=== PATIENT | male | born 1970 | race Caucasian/White ===

== ENCOUNTER 2019-12-04 21:18 | Emergency (ER) | payer SELFPAY ==
[2019-12-04 21:40] VITALS: BP 141/88; PULSE 85; RESP 15; TEMP 37.2; O2SAT 96; BMI 25.1
--- NOTE | 2019-12-04 22:33 | XR_ITS ---
WS: [id number] LEFT ANKLE: 3 VIEW(S) TECHNIQUE: AP, oblique(s) and lateral. HISTORY: ankle pain COMPARISON: None available. Acute, oblique fracture in the distal fibula without displacement. 2 cortical screws stabilize a rem ote fracture in the medial malleolus. No lucency around the screw. No new fracture medial malleolus. On the oblique image only, there is an osseous density between the distal fibula and tibia which coul d be from a remote injury or small loose body or fracture from the tibia. Small joint effusion. No significant degenerative changes at the joint spaces. Soft tissue edema surrounding the ankle. XR/XR ankle LT min 3V* 22163 IMPRESSION: 1. New, nondisplaced oblique fracture distal fibula. 2. Orthopedic screws stabilizing an old medial malleolus fracture. 3. Seen only on the oblique image is an osseous density at the tibiofibular ar ticulation which could be from an old injury or acute osseous fragment. Donor s ite cannot be determined.
--- NOTE | 2019-12-04 22:33 | XR_ITS ---
WS: [id number] LEFT FEMUR: 2 VIEW(S) TECHNIQUE: AP and lateral. HISTORY: Fell on ice. COMPARISON: None available. Patient has a long intramedullary femoral eda stabilizing a healed fracture with marked hypertrophy o f the bone. No lucency around the hardware. No acute fracture is identified. Changes of density with in the hypertrophic bone formation are probably due to normal healing. Soft tissues are unremarkable. No foreign body or calcification. XR/XR femur LT min 2V* 53519 Impression: 1. No acute femur fracture is identified. 2. Status post intramedullary rodding with abundant hypertrophic bone formatio n in the mid femur. If patient has persistent pain consider follow-up radiograp hs in one week to evaluate for occult fracture. There were no prior studies for comparison.
--- NOTE | 2019-12-04 23:23 | W.ED.EXTPRO ---
HPI - Extremity Problem General: Chief complaint: Extremity Injury, Lower Stated complaint: leg pain Time Seen by Provider: 12/04/19 22:31 History of Present Illness: HPI Narrative: Patient is a 49-year-old male comes to the ED with left ankle pain. Patient states that he slipped on the ice and rolled his left ankle. He also is having some left thigh pain after fall as well. Denies any head trauma, loss of consciousness, vomiting. Patient did say he has had some prior surgeries on left leg and was concerned that hardware in the femur could be damaged after fall. He has been able to ambulate but says it causes pain in his left ankle. Denies any fever, chills, chest pain, shortness of breath, abdominal pain, nausea, vomiting, hematuria, dysuria, bowel symptoms, numbness tingling or weakness to extremities. MD Complaint: extremity pain Onset (ago): hour(s) Location: left and lower extremity (Ankle) Quality: aching Radiation: none Relieving factors: immobilization and rest Exacerbating factors: weight bearing Associated symptoms: Reports no associated symptoms Review of Systems General: Reports: 10 or more systems reviewed and unremarkable except in HPI and below PFSH ED PFSH: Statuses (acute, chronic, etc) shown below reflect problem list status as previously entered and may not be historically accurate Social History Smoking and tobacco status: current every day smoker Physical Exam Const: COMMON NORMALS: oriented x3 HENMT: COMMON NORMALS: normocephalic HEAD & SCALP: normocephalic MOUTH: oral and palatal mucosa normal THROAT: posterior oropharynx normal and uvula midline Neck/C-Spine: COMMON NORMALS: supple GENERAL: Yes normal visual inspection Resp: COMMON NORMALS: normal respiratory effort, no retractions, no use of accessory muscles and clear to auscultation bilaterally AUSCULTATION: clear to auscultation bilaterally Cardio: COMMON NORMALS: regular rate, regular rhythm, S1 normal heart sound, S2 normal heart sound, no gallops, no clicks, no murmurs and peripheral pulses 2+ throughout RATE: regular rate RHYTHM: regular rhythm HEART SOUNDS: S1 normal and S2 normal PERIPHERAL PULSES: pulses 2+ throughout GI: COMMON NORMALS: normal to inspection, nondistended, normoactive bowel sounds, soft to palpation, non-tender and no masses PALPATION: Yes soft : COMMON NORMALS: Yes no CVA tenderness BLADDER/KIDNEY EXAM: Yes no CVA tenderness Back/Pelvis: COMMON NORMALS: no CVA tenderness Extremity: LEFT LOWER EXTREMITY: Yes ankle joint Left ankle: Yes inspection (Swelling on lateral aspect of left ankle. ), Yes palpation (mild tenderness over lateral aspect of ankle.), Yes ROM (normal but painful) and Yes neurovascular exam (intact) Neuro: COMMON NORMALS: oriented x3 and moves all extremities Course Vital Signs: Vital signs: Vital Signs Temperature 98.2 F 12/05/19 00:00 Pulse Rate 75 12/05/19 00:00 Respiratory Rate 14 12/05/19 00:00 Blood Pressure 150/94 12/05/19 00:00 Pulse Oximetry 97 12/05/19 00:00 MDM - Extremity (Nontraumatic) MDM Narrative: Medical decision making narrative: Pt is a 49 y/o Male with Left ankle pain. He was discharged with an ankle sprain pending the final radiologist review of left ankle xray. The radiologist did see a closed non-displaced oblique distal Fibula fracture. I contacted the pt using his preferred phone number on Monday12/07/2019. He did not answer his phone, but I left him a message letting him know about the radiologist report and that he needs to return to the [facility] ED as soon as possible to get a splint placed and a referral to [facility] orthopedics. Imaging Data^: Xray Ortho: Attestation: I personally reviewed and interpreted this imaging study as follows: My impression: No acute fractures. No apparent damage to previously placed hardware from prior fracture. Pending final radiology report. Radiologist's impression: [address] [place] [address] XRay Report Signed Patient: Wei Cunningham Unit #: [id number] : 1970 Age/Sex: 49 / M ADM Date: 12/04/19 Loc: ER Room/Bed: Attending Dr: Ordering Provider/Ordering MD: Shashank Loyd Date of Service: 12/04/19 Procedure(s): XR femur LT min 2V* 41619 Accession Number(s): [id number] Report Number: [id number] WS: [id number] LEFT FEMUR: 2 VIEW(S) TECHNIQUE: AP and lateral. HISTORY: Fell on ice. COMPARISON: None available. Patient has a long intramedullary femoral eda stabilizing a healed fracture with marked hypertrophy of the bone. No lucency around the hardware. No acute fracture is identified. Changes of density with in the hypertrophic bone formation are probably due to normal healing. Soft tissues are unremarkable. No foreign body or calcification. XR/XR femur LT min 2V* 34122 Impression: 1. No acute femur fracture is identified. 2. Status post intramedullary rodding with abundant hypertrophic bone formation in the mid femur. If patient has persistent pain consider follow-up radiographs in one week to evaluate for occult fracture. There were no prior studies for comparison. Dictated By: Marilia Gould DO Signed By: Marilia Gould DO Signed Date/Time: 12/05/19812 DD/ 9 Other Xray: Attestation: I personally reviewed and interpreted this imaging study as follows: My impression: Distal fibular fracture that appeared to be old. Ortho screws seen due to old medial malleolus injury. Pending final radiology report. Radiologist's impression: [place] [address] XRay Report Signed Patient: Wei Cunningham Unit #: [id number] : 1970 Age/Sex: 49 / M ADM Date: 12/04/19 Loc: ER Room/Bed: Attending Dr: Ordering Provider/Ordering MD: Shashank Loyd Date of Service: 12/04/19 Procedure(s): XR ankle LT min 3V* 03507 Accession Number(s): [id number] Report Number: [id number] WS: [id number] LEFT ANKLE: 3 VIEW(S) TECHNIQUE: AP, oblique(s) and lateral. HISTORY: ankle pain COMPARISON: None available. Acute, oblique fracture in the distal fibula without displacement. 2 cortical screws stabilize a remote fracture in the medial malleolus. No lucency around the screw. No new fracture medial malleolus. On the oblique image only, there is an osseous density between the distal fibula and tibia which could be from a remote injury or small loose body or fracture from the tibia. Small joint effusion. No significant degenerative changes at the joint spaces. Soft tissue edema surrounding the ankle. XR/XR ankle LT min 3V* 13575 IMPRESSION: 1. New, nondisplaced oblique fracture distal fibula. 2. Orthopedic screws stabilizing an old medial malleolus fracture. 3. Seen only on the oblique image is an osseous density at the tibiofibular articulation which could be from an old injury or acute osseous fragment. Donor site cannot be determined. Dictated By: Marilia Gould DO Signed By: Marilia Gould DO Signed Date/Time: 12/05/19803 DD/ 0 Discharge Plan Discharge Patient Disposition: Home, Self-Care Clinical Impression: Ankle sprain and strain Condition: Stable Prescriptions: No Action No Known Home Medications RF: 0 Discharge Orders: Discharge Order (Routine); Ordered 12/04/19 Ordered By: Shashank Loyd Discharge Diet: Regular Discharge Activity: Increase activity as tolerated and Use walker/crutches as instructed Activity Restrictions/Additional Instructions: Follow-up with your primary care doctor in 7 days for reevaluation. Use crutches to help ambulate and try to minimize weight bearing on left foot for 24-48 hours and start increasing activity as tolerated. Take ibuprofen or Aleve for pain and inflammation. Ice, rest, elevation and wrap ankle with Saad wrap. Discharge Date/Time: 12/05/19 00:01 Coding Level of Care Code ED Manager Of [employer] Development for Chevy Ohara
[2019-12-04] MEDS: ketorolac 30 mg/mL INJ IM (23:59)
[2019-12-05] VITALS: BP 150/94; PULSE 75; RESP 14; TEMP 36.8; O2SAT 97
== END 2019-12-05 00:01 | disposition home or self-care (01) ==
PROVIDERS: Emergency Provider Physician Assistant
DX: S93.402A Sprain of unspecified ligament of left ankle, initial encounter (principal); S96.912A Strain of unspecified muscle and tendon at ankle and foot level, left foot, initial encounter; W00.0XXA Fall on same level due to ice and snow, initial encounter; F17.210 Nicotine dependence, cigarettes, uncomplicated
CPT/HCPCS: 73552; 73610; 96372; 99281; J1885

== ENCOUNTER 2019-12-08 19:35 | Emergency (ER) | payer SELFPAY ==
[2019-12-08 19:51] VITALS: BP 145/96; PULSE 86; RESP 16; TEMP 36.9; O2SAT 97; BMI 25.4
--- NOTE | 2019-12-08 20:14 | ED_ITS ---
Entered by Stephanie Tsai, acting as scribe for Rachael Tolliver MD Dec 08, 2019 19:35 HPI - Extremity Problem General: Chief complaint: Extremity Injury, Lower Stated complaint: left leg pain Time Seen by Provider: 12/08/19 19:57 Source: patient, RN notes reviewed and old records reviewed Mode of arrival: other (crutches) Limitations: physical limitation (L ankle fracture) History of Present Illness: HPI Narrative: 49 yo male presents to ED with L ankle pain. The patient was seen here on after slipping on ice. He was told at that time that his ankle was fine but received a call yesterday and advised to return to the ED since his L ankle was broken. The patient will be referred to ortho. Complaint: joint swelling and joint paint Onset (ago): day(s) (3) Pain Consistency: constant Location: left and other (L ankle) Quality: aching and sharp Radiation: none Relieving factors: immobilization Exacerbating factors: range of motion, weight bearing and walking Associated symptoms: Reports no associated symptoms; Deny chest pain, fever(s) or rash Context: other (fall on ice) Review of Systems Const: Denies: fever or chills Eyes: Denies: change in vision ENMT: Denies: throat pain or mouth pain Card: Denies: chest pain Resp: Denies: shortness of breath GI: Denies: abdominal pain, nausea, vomiting or diarrhea Musc: Denies: back pain Skin/Breast: Denies: rash Neuro: Denies: headache or behavioral changes Psych: Denies: depression Endo: Denies: excessive urination Jaron/Lymph: Denies: easy bruising All/Imm: Denies: hives PFSH ED PFSH: Statuses (acute, chronic, etc) shown below reflect problem list status as previously entered and may not be historically accurate Social History Smoking and tobacco status: current every day smoker Physical Exam Const: COMMON NORMALS: no apparent distress and oriented x3 HENMT: COMMON NORMALS: normocephalic HEAD & SCALP: normocephalic Eye: COMMON NORMALS: PERRL PUPIL: Yes PERRL Chest: COMMONS NORMALS: inspection of chest normal Resp: COMMON NORMALS: normal respiratory effort Extremity: NARRATIVE EXTREMITY EXAM: Tenderness over left ankle and swelling noted Neuro: COMMON NORMALS: oriented x3 Psych: COMMON NORMALS: mental status grossly normal and thought process normal THOUGHT PROCESS: normal thought process Skin: COMMON NORMALS: no rashes or lesions noted and no wounds GENERAL SKIN EXAM: no rashes or lesions noted Course Vital Signs: Vital signs: Vital Signs Temperature 98.5 F 12/08/19 19:51 Pulse Rate 86 12/08/19 19:51 Respiratory Rate 16 12/08/19 19:51 Blood Pressure 145/96 12/08/19 19:51 Pulse Oximetry 97 12/08/19 19:51 MDM - Extremity (Nontraumatic) MDM Narrative: Medical decision making narrative: Patient presents with a fracture to his fibula. Patient placed in a splint and is to use crutches. He is to follow-up with orthopedics. Discharge Plan Discharge Patient Disposition: Home, Self-Care Clinical Impression: Fibula fracture Condition: Stable Prescriptions: No Action No Known Home Medications RF: 0 Discharge Orders: Discharge Order (Routine); Ordered 12/08/19 Ordered By: Rachael Tolliver Referrals: Ricco Mann DO [Physician] - 4-7 days Discharge Diet: Advance as tolerated Discharge Activity: Resume usual activity Patient Instructions: Ankle Fracture (ED) Coding Level of Care Code ED Mailroom Messenger for [employer]vy Ohara The documentation recorded by the Quin darby Valerie R, accurately reflects the service I personally performed and the decisions made by Unruly bhatia Korby, MD Dec 08, 2019 19:35
[2019-12-08 20:28] VITALS: BP 128/81; PULSE 75; RESP 16; TEMP 35.5; O2SAT 96
--- NOTE | 2019-12-08 21:06 | PC.NURSE ---
pt would like some pain medication so he can sleep tonight, he states
[2019-12-08 21:46] VITALS: BP 128/81; PULSE 75; RESP 16; TEMP 37; O2SAT 96
--- NOTE | 2019-12-10 09:11 | DCPLANNER ---
coating manager had message to schedule a follow up appointment for patient with ortho. coating manager called the ortho clinic, spoke with Pat, gave clinic patients information. coating manager was told that patients information would be printed and reviewed. Clinic will call case management director and patient with appointment information.
--- NOTE | 2019-12-13 15:38 | DCPLANNER ---
Patient has a follow up appointment scheduled for Monday, December 16, 2019 at 10:[address] Bauer. Clinic called patient with appointment information.
--- NOTE | 2020-01-14 14:33 | DCPLANNER ---
Patients appointment scheduled for 12.16.19 was rescheduled for 12.19.19 with ortho, and patient did attend the appointment.
== END 2019-12-08 21:40 | disposition home or self-care (01) ==
PROVIDERS: Emergency Provider Emergency Medicine
DX: S82.402A Unspecified fracture of shaft of left fibula, initial encounter for closed fracture (principal); W00.0XXA Fall on same level due to ice and snow, initial encounter; F17.210 Nicotine dependence, cigarettes, uncomplicated
CPT/HCPCS: 99281

== ENCOUNTER → 2019-12-19 10:50 | Outpatient (BNVA) | payer SELFPAY | PROVIDERS: Visit Provider Specialist | DX: S82.62XA Displaced fracture of lateral malleolus of left fibula, initial encounter for closed fracture (principal); X58.XXXA Exposure to other specified factors, initial encounter | CPT/HCPCS: 73610 ==

== ENCOUNTER 2019-12-19 15:50 | Outpatient (CLI) | payer SELFPAY | END 2019-12-19 15:51 | disposition home or self-care (01) | LOC: SPT 15:51 | PROVIDERS: Visit Provider Specialist | DX: S82.65XD Nondisplaced fracture of lateral malleolus of left fibula, subsequent encounter for closed fracture with routine healing (principal); X58.XXXD Exposure to other specified factors, subsequent encounter | CPT/HCPCS: L4361 ==

== ENCOUNTER → 2020-01-06 10:30 | Outpatient (BNVA) | payer SELFPAY | PROVIDERS: Visit Provider Specialist | DX: S99.912A Unspecified injury of left ankle, initial encounter (principal); Y99.0 Civilian activity done for income or pay; Z98.890 Other specified postprocedural states | CPT/HCPCS: 73610 ==

== ENCOUNTER 2020-05-28 01:55 | Emergency (ER) | payer SELFPAY ==
[2020-05-28 02:23] VITALS: BP 175/120; PULSE 94; RESP 18; TEMP 36.8; O2SAT 96; BMI 25.8
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
--- NOTE | 2020-05-28 02:34 | CTR_ITS ---
PROCEDURE INFORMATION: Exam: CT Abdomen And Pelvis With Contrast Exam date and time: 05/28/2020 3:26 AM Age: 50 years old Clinical indication: Abdominal pain; Generalized; Prior surgery; Surgery type: Appy, spleenectomy; Additional info: Abdominal pain llq TECHNIQUE: Imaging protocol: Computed tomography of the abdomen and pelvis with intravenous contrast. Radiation optimization: All CT scans at this facility use at least one of these dose optimization techniques: automated exposure control; mA and/or kV adjustment per patient size (includes targeted exams where dose is matched to clinical indication); or iterative reconstruction. Contrast material: OMNI 300; Contrast volume: 95 ml; Contrast route: INTRAVENOUS (IV); COMPARISON: No relevant prior studies available. RADIATION DOSE METRICS: Total DLP (mGy-cm): 739.35 FINDINGS: Lungs: 6 mm nodule in the left lung base. Liver: No mass. Gallbladder and bile ducts: Stone noted in the gallbladder neck. No wall thickening. No pericholecystic fluid. Pancreas: No ductal dilation. Spleen: No splenomegaly. Adrenals: No mass. Kidneys and ureters: No hydronephrosis. Stomach and bowel: No obstruction. No mucosal thickening. Appendix: No evidence of appendicitis. Intraperitoneal space: No free air. No significant fluid collection. Vasculature: No abdominal aortic aneurysm. Lymph nodes: No enlarged lymph nodes. Bladder: Unremarkable as visualized. Reproductive: Unremarkable as visualized. Bones/joints: Postsurgical changes of the proximal femurs. Soft tissues: Small fat containing umbilical hernia. CT/CT abdomen pelvis w con* [id number] IMPRESSION: 1. Cholelithiasis. 2. 6 mm nodule in the left lung base. For patients at low risk (minimal or absent history of smoking and of other known risk factors), no routine follow-up is indicated. For patients at high risk (history of smoking or of other known risk factors), consider optional CT Chest at 12 months. [place] H, Fleischner Society, 2017. Radiation Dose CTDIVOL = (mGy): DLP = 739.35 (mGy-cm)
--- NOTE | 2020-05-28 02:39 | US_ITS ---
WS: [id number] SCROTAL ULTRASOUND EXAMINATION CLINICAL INFORMATION: Pain/discomfort in the left testicle COMPARISON: None. FINDINGS: TESTES Normal in size and echotexture. Tiny incidental cyst left testicle. Color Doppler: Normal color Doppler flow pattern. Right testes size: 4.7 cm x 3.4 cm x 2.8 cm. Left testes size: 4.0 cm x 3.8 cm x 3.0 cm. EPIDIDYMIDES Edematous left epididymis with increased vascularity consistent with epididymitis. Right epididymis size: 0.9 cm x 1.3 cm x 1.1 cm. Left epididymitis size: 0.8 cm x 2.6 cm x 1.5 cm. HYDROCELE Bilateral VARICOCELE None. OTHER FINDINGS None. US/US scrotum [id number] IMPRESSION: 1. Left epididymitis. 2. No evidence for orchitis 3. Small bilateral hydroceles.
[2020-05-28] MEDS: sodium chloride 0.9% 1,000 ML 999 ML IV (02:45)
[2020-05-28 03:02] VITALS: BP 156/103; PULSE 82; RESP 22; O2SAT 95
[2020-05-28 03:36] LABS: Basophils # 0.1 10^3/uL (0.0-0.1); Basophils % 0.9 %; Eosinophils # 0.3 10^3/uL (0.0-0.8); Eosinophils % 2.8 %; Hematocrit 48.6 % (42.0-52.0); Hemoglobin 15.8 g/dL (11.7-16.6); Lymphocytes # 2.4 10^3/uL (0.8-4.8); Lymphocytes % 23.8 %; Mean Corpuscular HGB Conc 32.5 g/dL (30.0-36.0); Mean Corpuscular Hemoglobin 29.3 pg (28.0-34.0); Mean Platelet Volume 11.5 fL (7.4-10.4); Monocytes % 9.9 %; Neutrophils # 6.26 10^3/uL (1.8-7.7); Nucleated Red Blood Cells % 0 %; Platelet Count 247 10^3/cmm (130-400); Red Cell Distribution Width 13.3 % (12.1-15.1); White Blood Count 10.1 10^3/uL (4.0-10.0)
[2020-05-28 04:00] VITALS: BP 155/101; PULSE 88
[2020-05-28 04:06] LABS: Lactic Sepsis W/Reflex 1.4 mmol/L (0.5-2.2)
[2020-05-28] MEDS: iohexol 300 mg/mL 100 mL Btl IV (04:06)
[2020-05-28 04:07] LABS: Alanine Aminotransferase 44 U/L (0-41); Albumin Level 4.6 g/dL (3.5-5.2); Alkaline Phosphatase 109 IU/L (40-130); Anion Gap 16.1 (5-19); Aspartate Amino Transferase 28 U/L (0-40); Blood Urea Nitrogen 28 mg/dL (6-20); Calcium 9.7 mg/dL (8.5-10.5); Carbon Dioxide 25 mmol/L (22-29); Chloride 99 mmol/L (98-107); Creatinine Clr Calc Pharmacy 108.5526; Globulin 3.2 g/dL (1.3-4.6); Glomerular Filtration Rate 90.1 mL/min (90-130); Glucose 118 mg/dL (65-115); Lipase 22 U/L (13-60); Osmolality Calculated 280 mOsm/kg (285-295); Potassium 4.1 mmol/L (3.5-5.1); Sodium 136 mmol/L (136-145); Total Bilirubin 0.3 mg/dL (0.15-1.2); Total Protein 7.8 g/dL (6.6-8.7)
[2020-05-28 04:30] VITALS: BP 153/88
[2020-05-28 04:47] LABS: Bacteria Urine TRACE; Bilirubin Urine Neg (NEGATIVE); Blood Urine Neg (Negative); Glucose Urine UA Norm (Normal); Ketones Urine 1+ (Negative); Leukocyte Esterase Urine Negative (Negative); Mucus Urine 2+; Nitrate Urine Negative (Negative); Protein Urine Neg (Negative); RBC Urine RARE /hpf (0-2); Specific Gravity, Urine 1.025 (1.005-1.030); Squamous Epithelial Cell Urine RARE (0-5); Urine Appearance Clear (CLEAR); Urine Color Yellow (Yellow); Urobilinogen Urine Norm (Negative); WBC Urine RARE /hpf (0-5); pH Urine 5 (5-7)
[2020-05-28 05:55] VITALS: BP 149/104; PULSE 74; RESP 18; TEMP 36.6; O2SAT 97
== END 2020-05-28 05:59 | disposition home or self-care (01) ==
PROVIDERS: Physician Assistant; Emergency Provider Emergency Medicine
DX: N45.1 Epididymitis (principal); F17.210 Nicotine dependence, cigarettes, uncomplicated
CPT/HCPCS: 12345; 36415; 74177; 76870; 80053; 81001; 83605; 83690; 85025; 99283; 99284; J7030; Q9967

== ENCOUNTER 2021-05-02 11:57 | Emergency (ER) | payer SELFPAY ==
[2021-05-02 12:26] VITALS: BP 157/98; PULSE 77; RESP 18; TEMP 36.9; O2SAT 96; BMI 25.8
--- NOTE | 2021-05-02 14:09 | W.ED.MEDCLER ---
HPI - Medical Clearance General Chief complaint: Medical Clearance Stated complaint: neorological trouble Time Seen by Provider: 05/02/21 13:00 History of Present Illness HPI Narrative: 50-year-old male who is complaining of some left vision changes for a couple of days. He says 2 days [place] and there is a lot of bright lights and he felt like he could not see out the sides of his eyes. Went to bed fine then on Monday he felt like his vision had improved and resolved but he felt foggy headed and that he could not remember or figure out how to do the washing machine which she has had for a long time. Denies any headaches denies any numbness or tingling or neurological changes. He says then today when he holds his left hand out in front of him he cannot see it when it straight ahead but he can when he holds it further down towards his body. He denies any foreign body sensation he denies any curtain coming down or any floaters he denies flashes of lights he denies headache he denies numbness or tingling in any of his extremities Patient drove himself here Related Information Previous Rx's Medication Instructions Recorded ciprofloxacin HCl [Cipro] 500 mg PO BID #20 tab 05/28/20 ibuprofen 600 mg PO TID PRN #30 tab 05/28/20 Allergies Allergy/AdvReac Type Severity Reaction Status Date / Time No Known Allergies Allergy Verified 05/28/20 05:04 Course Vital Signs Temperature 98.5 F 05/02/21 12:26 Pulse Rate 77 05/02/21 12:26 Respiratory Rate 18 05/02/21 12:26 Blood Pressure 157/98 05/02/21 12:26 Pulse Oximetry 96 05/02/21 12:26 MDM - Medical Clearance MDM Narrative Medical decision making narrative: General: denies fatigue, fever or chills HEENT: denies ear pain, denies nasal congestion, see HPI, denies sore throat Neck: denies masses or pain Resp: denies cough, denies shortness of breath, denies pleuritic pain Cardio: denies chest pain, denies edema GI: denies abdominal pain, denies N/V/D, denies black/tarry or bloody stools : denies hematuria, denies dysuria Neuro: denies headache, denies dizziness, denies motor or sensory changes see HPI Musculoskeletal: denies pain, denies swelling Skin: denies rashes Psych: denies SI or HI Endocrine: denies thyroid symptoms, denies lymphadenopathy all over ROS reviewed and patient denies General: no distress, HEENT: normal eyes, normal mouth, normal external nose, visual acuity 20/25 OS, OD, OU, light reflex intact, limited exam since not dilated, can visualize vessels but not disc pt can see peripheray B/L appropriately and can see fingers straight on and above and below Neck: FROM Resp: normal effort, no tachypnea, no stridor Cardio: normal rate, no edema GI: soft, flat, non distended : deferred Neuro: normal coordination, normal speech, no gross motor or sensory deficits Musculo: normal ROM, no gross deformities Skin: no rash Psych: normal behavior normal mood and effect When I hold out fingers in front of the patient he easily can tell me what fingers I am holding up and him about the same distance from him as his own arm length. He could see my fingers straightahead from his eye and he could also see him when I was holding my fingers down closer to his waist was all equal bilaterally. However when patient holds his arms out he says he cannot see his left hand visual acuity here is normal. I offered to do a head CT to rule out any type of stroke or masses he refuses does not feel he needs that I explained that he needs to see an eye doctor for a more thorough exam he said he had an eye exam about a year ago. I am not sure what else I can offer him out of the ER except a neurological work-up which she refuses he denies any type of symptoms of a retinal detachment or vitreous detachment Discharge Plan Discharge Patient Disposition: Home Clinical Impression: Alteration in vision Condition: Stable Prescriptions: No Action ibuprofen 800 mg tablet 600 mg PO TID PRN (Reason: pain) Qty: 30 RF: 0 Cipro 500 mg tablet 500 mg PO BID Qty: 20 RF: 0 Discharge Orders: Discharge ED (Routine); Ordered 05/02/21 Ordered By: Toña Wilson Discharge Diet: Usual diet Discharge Activity: Resume usual activity Activity Restrictions/Additional Instructions: Recommend you see an eye doctor this week for more thorough exam be cautious on driving if you have any vision changes return if you have chest pain numbness tingling changes in thought process as you would need a further neurological work-up Thank you for choosing [facility] for your healthcare needs today. Please realize this is an emergency room and that we are providing you with a medical screening exam and this may not be complete and all inclusive of all the testing and or work up that you may need to determine your ailment or severity of your illness. It is very important that you follow up as instructed or that you return to the Emergency Department should you have concerns or if your condition changes or worsens in any way.
--- NOTE | 2021-05-02 14:45 | PC.NURSE ---
LEFT EYE 20/25 RIGHTEYE 20/25 BOTH EYES 20/25
== END 2021-05-02 14:46 | disposition home or self-care (01) ==
PROVIDERS: Emergency Provider Emergency Medicine
DX: H53.9 Unspecified visual disturbance (principal)
CPT/HCPCS: 99281